=== PATIENT | female | born 2000 | race Caucasian/White ===

== ENCOUNTER 2020-08-18 13:00 | Emergency (ER) | payer MEDICAID ==
[~2020-08-18] VITALS: Ht 167.6 cm; Wt 57.6 kg
[2020-08-18 13:05] VITALS: BP 136/87
[2020-08-18] MEDS ORDERED: MORPHINE SULFATE 4 MG/ML SYR IVP ONE (13:15)
[2020-08-18] MEDS ORDERED: ONDANSETRON 4 MG/2 ML VIAL IVP ONE (13:15)
[2020-08-18 13:52] LABS: BASOPHILS % (AUTO) 0.2 % (0.0-2.0); EOSINOPHILS % (AUTO) 0.2 % (0.0-4.0); HEMATOCRIT 39.5 % (36-48); HEMOGLOBIN 13.5 g/dL (12.0-16.0); LYMPHOCYTES # (AUTO) 0.5 K/uL (2.5-16.5); LYMPHOCYTES % (AUTO) 4.3 % (20.5-51.1); MEAN CORPUSCULAR HEMOGLOBIN 33 pg (27-31); MEAN CORPUSCULAR HGB CONC 34 g/dL (33-37); MEAN CORPUSCULAR VOLUME 94.8 fL (80-94); MONOCYTES # (AUTO) 0.8 K/uL (0.8-1.0); MONOCYTES % (AUTO) 6.3 % (1.7-9.3); NEUTROPHILS # (AUTO) 11.2 K/uL (1.8-7.7); PLATELET COUNT (AUTO) 256 K/uL (140-450); RED BLOOD CELL COUNT(AUTO) 4.16 MIL/uL (4.20-5.40); WHITE BLOOD COUNT (AUTO) 12.5 K/uL (4.8-10.8)
--- NOTE | 2020-08-18 14:09 | NUR ---
19 Y/O FEMALE BIBA FROM HOME FOR LLQ ABD PAIN, 10/10 CONSTANT SHARP PAIN X2 DAYS ACCOMPANIED WITH NAUSEA, NO VOMITING NOTED. PT IS AFEBRILE. RESP EVEN AND UNLABORED. VSS. PAIN IS 10/10 SHARP AND CONTINUOUS PMH: OVARIAN CYST, KIDNEY STONES NKDA
[2020-08-18 14:15] LABS: ALBUMIN 4.4 g/dL (3.4-5.0); ANION GAP 14.6 (8-16); CARBON DIOXIDE 26.2 mmol/L (21-32); CREATININE 0.7 mg/dL (0.6-1.3); POTASSIUM 3.8 mmol/L (3.5-5.1); TOTAL BILIRUBIN 1.1 mg/dL (0.0-1.0)
--- NOTE | 2020-08-18 14:25 | NUR ---
US AT BEDSIDE
[2020-08-18 14:42] LABS: FREE T4 (FREE THYROXINE) 1.15 ng/dL (0.76-1.46); THYROID STIMULATING HORMONE 0.92 uIU/mL (0.34-3.74)
[2020-08-18 15:25] VITALS: BP 127/85
--- NOTE | 2020-08-18 15:25 | NUR ---
Patient discharged with v/s stable. Written and verbal after care instructions given and explained. Patient alert, oriented and verbalized understanding of instructions. Ambulatory with steady gait. All questions addressed prior to discharge. ID band removed. Patient advised to follow up with PMD. Rx of CEPHALEXIN, NAPROSYN given. Patient educated on indication of medication including possible reaction and side effects. Opportunity to ask questions provided and answered.
== END 2020-08-18 15:25 | disposition home or self-care (01) ==
LOC: MED 13:00
DX: N12 Tubulo-interstitial nephritis, not specified as acute or chronic (principal); N83.209 Unspecified ovarian cyst, unspecified side
CPT/HCPCS: 36415; 74176; 76830; 80053; 81002; 81025; 83690; 84439; 84443; 85025; 93976; 96374; 96375; 99285; J2270; J2405; Q0092